=== PATIENT | male | born 1985 | race Two or more races ===

== ENCOUNTER 2021-08-31 19:06 | Emergency (ER) | payer SELFPAY ==
[~2021-08-31] VITALS: Ht 175.3 cm; Wt 104.3 kg
[2021-08-31 19:06] VITALS: BP 130/87
== END 2021-08-31 23:15 | disposition left against medical advice (07) ==
LOC: ER 19:08
DX: R11.2 Nausea with vomiting, unspecified (principal); R42 Dizziness and giddiness; Z53.21 Procedure and treatment not carried out due to patient leaving prior to being seen by health care provider